=== PATIENT | female | born 1995 | race Caucasian/White ===

== ENCOUNTER → 2022-10-17 16:45 | Outpatient (CLI) | payer OTHER, SELFPAY ==
--- NOTE | ~2022-10-17 | XR_ITS ---
XR hand RT min 3V DATE: 10/17/2022 17:16 INDICATION: Right hand sprain TECHNIQUE: 3 views COMPARISON: None FINDINGS: No fracture or dislocation, periosteal reaction or bone destruction, erosive change, joint space narrowing. IMPRESSION: Negative Reviewed, dictated and finalized at location B. [employer] IMPRESSION: Negative
== END ==
DX: S63.91XA Sprain of unspecified part of right wrist and hand, initial encounter (principal); T14.90XA Injury, unspecified, initial encounter
CPT/HCPCS: 73130